=== PATIENT | female | born 1945 | race Caucasian/White ===

== ENCOUNTER 2020-11-26 08:12 | Day surgery (SDC) | payer MEDICARE, OTHER ==
[~2020-11-26] VITALS: Ht 162.6 cm; Wt 85.0 kg
[~2020-11-26 08:12] MED LIST: BUPROPION XL150 M1 PO; CELECOXIB200 MG PO; HYDCHL25 PO
[2020-11-26] MEDS ORDERED: DULO60 PO (08:54)
--- NOTE | 2020-11-26 12:39 | NUR ---
PT RETURNED TO RECOVERY ROOM IN BED. LEFT FEMORAL GROIN SITE SOFT NON-TENDER WTIH NO HEMATOMA, NO PULSATILE BLEEDING AND INTACT DRESSING. PT DENIES CHEST PAIN. CALL LIGHT IN REACH. PT DRINKING WATER.
[2020-11-26] MEDS ORDERED: ATOR40TA PO (12:46)
[2020-11-26] MEDS ORDERED: PLAVIX75 MG PO (12:47)
--- NOTE | 2020-11-26 13:47 | NUR ---
DISCHARGE INSTRUCTIONS REVIEWED ALL QUESTIONS ANSWERED. NO CHANGES TO LEFT FEMORAL SITE. LEFT PT PULSE DOPPLER.
--- NOTE | 2020-11-26 14:50 | NUR ---
PT AMBULATED TO BR TO VOID. NO CHANGES TO LEFT GROIN SITE - SOFT NON-TENDER WTIH NO HEMATOMA, NO PULSATILE BLEEDING WITH INTACT CANNULA. LEFT PT PULSE DOPPLER. 20 G IV DISCONTINUED FROM LEFT AC WITH INTACT CANNULA. PT ESCORTED OUT VIA WHEELCHAIR ESCORT.
[2020-12-25] MEDS ORDERED: ASPI81CH PO (13:02)
== END 2020-11-26 14:50 | disposition home or self-care (01) ==
LOC: MHTC 08:12
DX: I70.213 Atherosclerosis of native arteries of extremities with intermittent claudication, bilateral legs (principal); I10 Essential (primary) hypertension; M54.89 Other dorsalgia; F17.210 Nicotine dependence, cigarettes, uncomplicated
CPT/HCPCS: 37227; 75625; 75716; 75774; 99152; 99153; C1714; C1725; C1760; C1769; C1874; C1884; C1887; C1894; C2623; J1644; J2250; J3010; J7030; J7050; Q9967

== ENCOUNTER 2020-12-26 05:52 | Day surgery (SDC) | payer MEDICARE, OTHER ==
[~2020-12-26] VITALS: Ht 162.6 cm; Wt 84.0 kg
[~2020-12-26 05:52] MED LIST changes: +ASPI81CH PO; +ATOR40TA PO; +DULO60 PO; +PLAVIX75 MG PO
--- NOTE | 2020-12-26 13:28 | NUR ---
DISCHARGE PT REMAINS A&OX3 AND DENIED ANY PAIN AT THIS TIME. R GROIN SITE REMAIN CDI-NO HEMATOMA NOTED. PT ABLE TO DRESS SELF. IV DC'D WITH CANULA IN TACT. DISCHARGE PAPERWORK GONE OVER WITH PT. PT VERBALLY STATED THE UNDERSTANDING OF THE DISCHARGE EDUCATION AND DENIED ANY QUESTIONS AT THIS TIME. PT WHEELED OUT BY ESCORT.
== END 2020-12-26 12:00 | disposition home or self-care (01) ==
LOC: MHTC 05:52
DX: I70.213 Atherosclerosis of native arteries of extremities with intermittent claudication, bilateral legs (principal); I10 Essential (primary) hypertension; F17.210 Nicotine dependence, cigarettes, uncomplicated; Z79.02 Long term (current) use of antithrombotics/antiplatelets
CPT/HCPCS: 37227; 75716; 75774; 85347; 99152; 99153; C1714; C1725; C1760; C1769; C1874; C1884; C1887; C1894; C2623; J1644; J2250; J3010; J7030; J7050; Q9967

== ENCOUNTER 2022-08-24 11:16 | Inpatient (IN) | payer MEDICARE ==
[~2022-08-24] VITALS: Ht 162.6 cm; Wt 81.3 kg
[2022-08-24] MEDS ORDERED: FLUTICASONE-SA1 EAC9 IH (12:05)
[2022-08-24] MEDS ORDERED: METO50ER PO (12:07)
[2022-08-24] MEDS ORDERED: DULO30 PO (12:08)
[2022-08-24] MEDS ORDERED: IPRAT-ALBUT 0.5-3 ML IH (12:10)
[2022-08-24 12:34] LABS: BASOPHILS ABSOLUTE AUTO 0.08 K/mm3 (0.00-0.23); BASOPHILS PERCENT AUTO 1 % (0-2); EOSINOPHILS ABSOLUTE AUTO 0.28 K/mm3 (0.00-0.68); EOSINOPHILS PERCENT AUTO 2 % (0-6); Hematocrit 38.1 % (33.0-51.0); Hemoglobin 13.3 g/dL (11.5-16.0); Mean Corpuscular HGB 34.6 pg (26.0-34.0); Mean Corpuscular HGB Conc 34.9 g/dL (31.5-36.5); Mean Corpuscular Volume 99 fL (80-100); Mean Platelet Volume 9.5 fL (9.1-12.4); Platelet Count 334 K/mm3 (150-400); RDW Coefficient Variation 12.8 % (11.7-14.2); RDW Standard Deviation 46.4 fL (35.1-46.3); Red Blood Cell Count 3.84 M/mm3 (3.80-5.20); White Blood Cell Count 14.83 K/mm3 (4.00-11.30)
[2022-08-24 12:44] LABS: IMMATURE GRAN ABSOLUTE AUTO 0.14 K/mm3 (0.00-0.10); IMMATURE GRAN PERCENT AUTO 1 % (0-1); LYMPHOCYTES ABSOLUTE AUTO 2.05 K/mm3 (0.84-5.20); LYMPHOCYTES PERCENT AUTO 14 % (21-46); MONOCYTES ABSOLUTE AUTO 1.56 K/mm3 (0.16-1.47); MONOCYTES PERCENT AUTO 11 % (4-13); NEUTROPHILS ABSOLUTE AUTO 10.72 K/mm3 (1.96-9.15); NEUTROPHILS PERCENT AUTO 72 % (41-73)
[2022-08-24 12:53] LABS: Albumin, Blood 2.3 g/dL (3.4-5.0); Albumin/Globulin Ratio 0.5 (0.8-1.8); Bilirubin, Total 0.9 mg/dL (0.1-1.0); Bun/Creatinine Ratio 24.1 (12.0-20.0); Calcium, Blood 9.2 mg/dL (8.5-10.1); Creatinine, Blood 0.71 mg/dL (0.40-1.00); Potassium, Blood 3.1 mmol/L (3.5-5.5); Total Protein, Blood 7.3 g/dL (6.4-8.2)
[2022-08-24 14:37] LABS: Source, Urine Voided
[2022-08-24 14:51] LABS: Blood, Urine 4+ (Neg); Color, Urine Amber (P-Yellow); Glucose Qualitative, Urine Neg (Neg); Ketones, Urine 3+ (Neg); Leukocyte Esterase, Urine 1+ (Neg); Nitrite, Urine Neg (Neg); Protein, Urine 2+ (Neg); Specific Gravity, Urine 1.015 (1.003-1.022); Urobilinogen, Urine 3+ (Normal)
[2022-08-24 15:16] LABS: Appearance, Urine Hazy (Clear); Bilirubin, Urine 2+ (Neg)
[2022-08-24 15:19] LABS: Granular Casts 0-2 /lpf (0)
[2022-08-24 15:20] LABS: Mucus Heavy (0-Heavy); Squamous Epithelial Cells Many /hpf (Few)
[2022-08-24 15:21] LABS: Amorphous Light (0-Heavy); Bacteria Many /hpf; Calcium Oxalate Crystals Rare /hpf
[2022-08-24] MEDS ORDERED: FLUT1DIS2 INH (17:48)
--- NOTE | 2022-08-24 18:48 | NUR ---
ADMIT NOTE PATIENT NEW ADMIT TO UNIT FROM ER. DX OF PERFORATED APPENDIX WITH ABSCESS. ALERT AND ORIENTED AND [place]. SBA TO TRANSFER FROM RNEY TO BED. VSS, SATTING WELL ON RA. ABD TENDER TO PALPATION. TOLERATING SIPS OF WATER. PLAN FOR NPO AFTER MIDNIGHT FOR PLACEMENT OF DRAIN BY IR TOMORROW 08/25/22. SON PRESENT IN ROOM DURING ADMISSION.
[2022-08-25 04:01] LABS: Hematocrit 35.2 % (33.0-51.0); Hemoglobin 12.2 g/dL (11.5-16.0); Mean Corpuscular HGB 35.2 pg (26.0-34.0); Mean Corpuscular HGB Conc 34.7 g/dL (31.5-36.5); Mean Corpuscular Volume 101 fL (80-100); Mean Platelet Volume 9.5 fL (9.1-12.4); Platelet Count 340 K/mm3 (150-400); RDW Coefficient Variation 12.9 % (11.7-14.2); RDW Standard Deviation 48.3 fL (35.1-46.3); Red Blood Cell Count 3.47 M/mm3 (3.80-5.20); White Blood Cell Count 11.98 K/mm3 (4.00-11.30)
[2022-08-25 05:04] LABS: Albumin/Globulin Ratio 0.5 (0.8-1.8); Bilirubin, Total 0.8 mg/dL (0.1-1.0); Bun/Creatinine Ratio 16.8 (12.0-20.0); Calcium, Blood 8.6 mg/dL (8.5-10.1); Creatinine, Blood 0.66 mg/dL (0.40-1.00); Globulin, Blood 4.3 g/dL (2.2-4.0); Potassium, Blood 3.4 mmol/L (3.5-5.5); Total Protein, Blood 6.3 g/dL (6.4-8.2)
--- NOTE | 2022-08-25 05:40 | NUR ---
Patient slept off and on during the night, wakening with pain x2. Medicated per emar with good relief that allowed patient to rest. JASMYNE THAYER on tele low 100's. Will report to dayshift QUE.
[2022-08-25 05:51] LABS: BASOPHILS PERCENT MAN 0 % (0-2); EOSINOPHILS ABSOLUTE MAN 1.31 K/mm3 (0.00-0.68); EOSINOPHILS PERCENT MAN 11 % (0-6); LYMPHOCYTES % ATYPICAL MANUAL 1 % (0-0); LYMPHOCYTES ABSOLUTE MAN 0.95 K/mm3 (0.84-5.20); LYMPHOCYTES PERCENT MAN 7 % (21-46); MONOCYTES ABSOLUTE MAN 0.47 K/mm3 (0.16-1.47); MONOCYTES PERCENT MAN 4 % (4-13); NEUTROPHILS ABSOLUTE MAN 9.22 K/mm3 (1.96-9.15); SEG NEUTROPHILS PERCENT MAN 77 % (41-73); TOTAL CELLS COUNTED 100
[2022-08-25 09:20] LABS: International Normalized Ratio 1.19; Prothrombin Time Results 12.4 Sec (9.7-11.5)
--- NOTE | 2022-08-25 11:23 | NUR ---
PROCEDURE PT BACK TO FROM PROCEDURE. PT A&O X4. VSS. SPO2 > 92% ON RA. MONITOR SHOWING SR, HR 90s. NEW DRAIN IN PLACE TO RLQ W/ SECUREMENT DEVICE, GAUZE & TRANSPARENT DRESSING C/D/I. DRAIN W/ PINK/RED LIQUID W/ SEDIMENT NOTED IN TUBING, COLLECTION BAG EMPTY AT THIS TIME. PT REPORTS "JUST A TWINGE" OF RLQ DISCOMFORT AT THIS TIME. PT FURTHER STATING "I FEEL GOOD!" PT NOW VISITING W/ FAMILY ON PHONE, LAUGHING & SMILING.
--- NOTE | 2022-08-25 18:46 | NUR ---
END OF SHIFT NOTE PT A&O X4. VSS. SPO2 > 92% ON RA. MONITOR SHOWING NSR, HR 80s. RLQ DRAIN W/ THICK PINK/RED/SAM OUTPUT. PT MEDICATED FOR RLQ PAIN X1 THIS SHIFT W/ PT REPORT OF IMPROVEMENT. PT ABLE TO SLEEP IN RM. WILL REPORT OFF TO HEAV[employer] EQUIPMENT MECHANIC RN.
--- NOTE | 2022-08-25 23:50 | NUR ---
ASSUMPTION OF CARE: NEURO: COMPLETELY ALERT AND ORIENTED, PLEASANT ABLE TO MAKE NEEDS KNOWN. DENIES N/T AT THIS TIME. PULM: PATIENT IS ON RA SPO2 >98% SOME MILD EXP WHEEZES IN THE UPPER LOBES CARDIAC: SR 80'S. DENIES CHEST PAIN/PRESSURE OR SOB. BLOOD PRESSIRE NORMOTENSIVE FOR PATIENT AT THIS TIME. GI/: CONTINENT AT THIS TIME. CONCERNS: DRAIN IS DRAINING SERSABGUINOUS FLUID MINIMAL. PATIENT HAS DECREASED PAIN, TOLERATING WELL. NO CONCERNS AT THIS TIME. WILL CONTINUE TO MONITOR UNTIL CHANGE OF RN.
--- NOTE | 2022-08-26 06:05 | NUR ---
SHIFT SUMMARY THIS NURSE ASSUMED CARE AT 0000. VSS. PT DENIED FEELINGS OF PAIN INCLUDING CHEST PAIN/PRESSURE. SHE IS ALERT AND ORIENTED X 4 AND WAS ABLE TO MAKE HER NEEDS KNOWN AND USE CALL LIGHT APPROPRIATELY. URESIL DRAIN IN RIGHT LOWER QUADRANT HAS HAD MINIMAL OUTPUT. SHE WAS A SBA TO BATHROOM TO MANAGE LINES. IV IN R AC IS SALINE LOCKED. NO ACUTE CHANGES NOTED. WILL CONTINUE TO MONITOR UNTIL REPORT GIVEN.
[2022-08-26 07:14] LABS: Hematocrit 34.9 % (33.0-51.0); Mean Corpuscular HGB 34.6 pg (26.0-34.0); Mean Corpuscular HGB Conc 34.4 g/dL (31.5-36.5); Mean Corpuscular Volume 101 fL (80-100); Mean Platelet Volume 9.1 fL (9.1-12.4); Platelet Count 384 K/mm3 (150-400); RDW Coefficient Variation 12.9 % (11.7-14.2); Red Blood Cell Count 3.47 M/mm3 (3.80-5.20); White Blood Cell Count 10.72 K/mm3 (4.00-11.30)
[2022-08-26 07:32] LABS: Bun/Creatinine Ratio 14.1 (12.0-20.0); Calcium, Blood 8.5 mg/dL (8.5-10.1); Creatinine, Blood 0.64 mg/dL (0.40-1.00); Potassium, Blood 2.9 mmol/L (3.5-5.5)
[2022-08-26 08:07] LABS: BASOPHILS PERCENT MAN 0 % (0-2); EOSINOPHILS PERCENT MAN 15 % (0-6); LYMPHOCYTES PERCENT MAN 15 % (21-46); MONOCYTES ABSOLUTE MAN 0.53 K/mm3 (0.16-1.47); MONOCYTES PERCENT MAN 5 % (4-13); NEUTROPHILS ABSOLUTE MAN 6.96 K/mm3 (1.96-9.15); SEG NEUTROPHILS PERCENT MAN 65 % (41-73); TOTAL CELLS COUNTED 100
--- NOTE | 2022-08-26 18:47 | NUR ---
END OF SHIFT NOTE PT MEDICAL STATUS. A&O X4. VSS. SPO2 > 92% ON RA. MONITOR SHOWING NSR, HR 70s-80s. PT SBA OOB. PT DENYING PAIN/DISCOMFORT. RLQ DRAIN W/ SMALL AMOUNT OF THICK, SAM, PINK, RED OUTPUT. NO EVENTS THIS SHIFT.
--- NOTE | 2022-08-27 05:06 | NUR ---
SHIFT SUMMARY PT IS A&OX4, SBA W/ FWW TO THE BATHROOM, MOVES IND IN BED, IS CONT OF URINE AND BOWEL, HAS BEEN SR 70'S-80'S ON TELE, AND SP02 >90% ON ROOM AIR. PT HAS DENIED ANGINA AND SOB, AND DRAIN SITE IS WNL. SHE HAS BEEN RESTING MAJORITY OF THE SHIFT AND HAS NOT HAD ANY ACUTE EVENTS. BED IN LOW, CALL LIGHT IN REACH, AND THREE SIDE RAILS ARE UP. WILL CONTINUE TO MONITOR UNTIL SHIFT REPORT IS GIVEN TO THE ONCOMING SHIFT RN. SEE NOTES FOR ANY UPDATES.
[2022-08-27 06:56] LABS: Hematocrit 33.4 % (33.0-51.0); Hemoglobin 11.5 g/dL (11.5-16.0); Mean Corpuscular HGB 34.4 pg (26.0-34.0); Mean Corpuscular HGB Conc 34.4 g/dL (31.5-36.5); Mean Corpuscular Volume 100 fL (80-100); Mean Platelet Volume 9.4 fL (9.1-12.4); Platelet Count 425 K/mm3 (150-400); RDW Coefficient Variation 13.1 % (11.7-14.2); RDW Standard Deviation 48.6 fL (35.1-46.3); Red Blood Cell Count 3.34 M/mm3 (3.80-5.20)
[2022-08-27 07:26] LABS: Bun/Creatinine Ratio 11.6 (12.0-20.0); Calcium, Blood 8.5 mg/dL (8.5-10.1); Creatinine, Blood 0.61 mg/dL (0.40-1.00); Potassium, Blood 3.4 mmol/L (3.5-5.5)
[2022-08-27 08:19] LABS: BASOPHILS PERCENT MAN 1 % (0-2); EOSINOPHILS ABSOLUTE MAN 0.83 K/mm3 (0.00-0.68); EOSINOPHILS PERCENT MAN 8 % (0-6); LYMPHOCYTES % ATYPICAL MANUAL 1 % (0-0); LYMPHOCYTES ABSOLUTE MAN 2.08 K/mm3 (0.84-5.20); LYMPHOCYTES PERCENT MAN 19 % (21-46); MONOCYTES ABSOLUTE MAN 1.14 K/mm3 (0.16-1.47); MONOCYTES PERCENT MAN 11 % (4-13); NEUTROPHILS ABSOLUTE MAN 6.24 K/mm3 (1.96-9.15); SEG NEUTROPHILS PERCENT MAN 60 % (41-73); TOTAL CELLS COUNTED 100
[2022-08-27] MEDS ORDERED: LEVOFLOXACIN750 MG PO (16:18)
[2022-08-27] MEDS ORDERED: METR500 PO (16:19)
--- NOTE | 2022-08-27 17:50 | NUR ---
DISCHARGE HOME PT A&O X4. VSS. SPO2 > 92% ON RA. RLQ DRAIN REMOVED BY SURGEON TODAY. PT W/ SMALL AMOUNT OF BLEEDING ON GAUZE W/ TRANSPARENT DRESSING COVERING SITE. PT DENYING PAIN/DISCOMFORT. PT EAGER FOR DISCHARGE. DISCHARGE INSTRUCTIONS REVIEWED W/ PT & PT FAMILY MEMBER AT BEDSIDE. PIV REMOVED. PT TAKEN OUT BY PCT IN WHEELCHAIR @ APPROX [id number].
== END 2022-08-27 17:41 | disposition home or self-care (01) | DRG 871 ==
LOC: ER 11:16 → PCU 15:20
PROVIDERS: Student in an Organized Health Care Education/Training Program; ADMIT Internal Medicine
PROC: 3E03329 Introduction of Other Anti-infective into Peripheral Vein, Percutaneous Approach (ICD-10-PCS; principal; 2022-08-24)
PROC: 0D9W30Z Drainage of Peritoneum with Drainage Device, Percutaneous Approach (ICD-10-PCS; 2022-08-25)
DX: A41.4 Sepsis due to anaerobes (principal); K35.33 Acute appendicitis with perforation, localized peritonitis, and gangrene, with abscess; I10 Essential (primary) hypertension; J44.9 Chronic obstructive pulmonary disease, unspecified; F17.210 Nicotine dependence, cigarettes, uncomplicated; E78.5 Hyperlipidemia, unspecified; I73.9 Peripheral vascular disease, unspecified; Z66 Do not resuscitate; F32.A Depression, unspecified; M54.9 Dorsalgia, unspecified; G89.29 Other chronic pain; K59.00 Constipation, unspecified; E87.6 Hypokalemia; R73.01 Impaired fasting glucose; Z79.899 Other long term (current) drug therapy; Z79.52 Long term (current) use of systemic steroids; Z79.02 Long term (current) use of antithrombotics/antiplatelets; Z79.82 Long term (current) use of aspirin; Z98.890 Other specified postprocedural states; Z95.820 Peripheral vascular angioplasty status with implants and grafts
CPT/HCPCS: 36415; 49405; 74176; 74177; 80048; 80053; 81001; 83605; 83690; 83735; 84132; 85025; 85610; 87040; 87070; 87075; 87076; 87086; 87205; 94640; 94664; 94760; 94762; 96365-59; 96366; 96367; 96375; 99285-25; A9270; J1885; J2405; J2543; J3480; J7030; J7050; J7120; Q9967

== ENCOUNTER 2022-11-09 11:56 | Day surgery (SDC) | payer MEDICARE ==
[2022-11-04 15:13] LABS: Bun/Creatinine Ratio 18.7 (12.0-20.0); Creatinine, Blood 0.7 mg/dL (0.40-1.00); Potassium, Blood 3.7 mmol/L (3.5-5.5)
[~2022-11-09] VITALS: Ht 162.6 cm; Wt 87.0 kg
[~2022-11-09 11:56] MED LIST changes: +DULO30 PO; +FLUT1DIS2 INH; +FLUTICASONE-SA1 EAC9 IH; +IPRAT-ALBUT 0.5-3 ML IH; +LEVOFLOXACIN750 MG PO; +METO50ER PO; +METR500 PO
--- NOTE | 2022-11-09 14:32 | NUR ---
Ambulatory in Day Surgery History, Chart, Medications and Allergies reviewed before start of procedure.Pre-Op teaching done. Pt verbalizes understanding. Patient States Post-Procedure ride home has been arranged.
--- NOTE | 2022-11-09 14:35 | NUR ---
LATE ENTRY: PT SOUNDS "WINDED" WALKING INTO DEPT. DENIES FEELING SOB OR CHEST PAIN. REPORTS SHE WAS TOLD NOT TO TAKE HER LASIX SO SHE HAS NOT TAKEN IT SINCE 11/04/22 AND HOW HAS 1+ PITTING EDEMA IN BLE. STATES "IT WAS REALLY HARD TO GET MY RINGS OFF TOO"
== END 2022-11-09 22:36 | disposition home or self-care (01) ==
LOC: ORSCMMR 11:56 → ORD 13:00 → ORSCMMR 22:36
PROVIDERS: Surgery
PROC: 0DTJ4ZZ Resection of Appendix, Percutaneous Endoscopic Approach (ICD-10-PCS; principal; 2022-11-09 14:30)
DX: K35.33 Acute appendicitis with perforation, localized peritonitis, and gangrene, with abscess (principal); F41.9 Anxiety disorder, unspecified; F32.A Depression, unspecified; I10 Essential (primary) hypertension; J44.9 Chronic obstructive pulmonary disease, unspecified; F17.210 Nicotine dependence, cigarettes, uncomplicated; Z79.82 Long term (current) use of aspirin; Z79.899 Other long term (current) drug therapy
CPT/HCPCS: 36415; 80048; 88304; J0295; J1100; J2405; J2704; J2795; J3010; J7120